=== PATIENT | female | born 1980 | race Caucasian/White ===

== ENCOUNTER → 2019-07-13 08:52 | Outpatient (CLI) | payer OTHER, SELFPAY ==
[2019-07-13 08:34] VITALS: BMI 48.9
[2019-07-13 12:27] LABS: Absolute Lymphocyte Count 1.62 X10^3/uL (0.83-4.51); Absolute Neutrophil Count 5.1 X10^3/uL (2.0-7.7); Basophil# 0.03 X10^3/uL; Basophil% 0.4 % (0-1); Eosinophil# 0.09 X10^3/uL; Eosinophils% 1.3 % (0-5); Hematocrit 38.5 % (37-47); Hemoglobin 12.2 g/dL (12.0-15.0); Lymphocyte # 1.62 X10^3/ul (4.0); Lymphocyte % 22.9 % (19-41); Mean Corp Hgb Conc 31.7 g/dL (32-36); Mean Corpuscular Hgb 28.2 pg (27.0-32.0); Mean Corpuscular Volume 89.1 fL (81-99); Mean Platelet Vol. 10.2 fl (6.2-12.0); Monocyte# 0.24 X10^3/uL; Monocyte% 3.4 % (0-10); NRBC Flagged by Analyzer 0 % (0-5); Neutrophil # 5.09 X10^3/uL (2.7-7.7); Neutrophil % 71.9 % (47-70); Platelet Count 295 K/mm3 (150-450); RBC Distribution Width CV 13.2 % (11.6-14.6); RBC Distribution Width SD 42.8 fl (35.1-43.9); Red Blood Count 4.32 M/mm3 (4.2-5.4); White Blood Count 7.1 K/mm3 (4.4-11.0)
[2019-07-13 13:20] LABS: ALB/GLOB Ratio 0.8 RATIO (0.9-2.4); AST(SGOT) 18 U/L (15-37); Alanine Aminotransfer ALT/SGPT 28 U/L (13-56); Albumin, Serum 3.3 g/dL (3.2-5.0); Alkaline Phosphatase 97 U/L (45-117); Anion Gap 9 (5-15); BUN 9 mg/dL (7-18); BUN/Creat Ratio 10.4 RATIO (10-20); Calcium,Total 8.7 mg/dL (8.5-10.1); Chloride 105 mmol/L (98-107); Creatinine, Serum 0.86 mg/dL (0.55-1.02); EST Glomerular Filtration Rate 77 mL/min (>60); Est Glom Filt Rate - Afr Amer 94 mL/min (>60); Globulin 4.2 g/dL (2.2-4.2); Glucose 170 mg/dL (74-106); Potassium 3.7 mmol/L (3.5-5.1); Protein, Total 7.5 g/dL (6.4-8.2); Sodium Level 138 mmol/L (136-145); T4 Free Direct 0.98 ng/dL (0.76-1.46); Thyroid Stim Hormone (TSH) 2.64 uIU/mL (0.358-3.74)
[2019-07-16 09:54] LABS: Hemoglobin A1c 5.3 % (3.8-5.6)
== END ==
PROVIDERS: PCP Internal Medicine; Referring Provider Internal Medicine; Visit Provider Internal Medicine
DX: R53.81 Other malaise (principal); R53.83 Other fatigue; R73.9 Hyperglycemia, unspecified; Z13.29 Encounter for screening for other suspected endocrine disorder
CPT/HCPCS: 36415; 80053; 83036; 84439; 84443; 85025

== ENCOUNTER → 2019-08-21 13:58 | Outpatient (CLI) | payer OTHER, SELFPAY ==
[2019-08-21 13:36] VITALS: BMI 48.9
[2019-08-21 17:28] LABS: Cholesterol 161 mg/dL (200); High Density Lipoprotein 33 mg/dL; Triglycerides 145 mg/dL; Very Low Density Lipoprotein 29 mg/dL (5-40)
== END ==
PROVIDERS: PCP Internal Medicine; Referring Provider Internal Medicine; Visit Provider Internal Medicine
DX: Z00.00 Encounter for general adult medical examination without abnormal findings (principal)
CPT/HCPCS: 36415; 80061

== ENCOUNTER → 2019-09-04 16:22 | Outpatient (CLI) | payer OTHER, SELFPAY ==
[2019-08-21 13:36] VITALS: BMI 48.9
--- NOTE | 2019-09-04 16:22 | BI_ITS ---
MAMMOGRAPHY - BILATERAL SCREENING REASON FOR EXAM: Female, 39 years old. Routine annual screening examination. PERTINENT HISTORY: Non-contributory. TECHNIQUE: Digital bilateral breast armos (3D mammographic acquisition) in the CC and MLO projections. 2-D mediolateral oblique (MLO) and craniocaudad (CC) views of both breasts were obtained. CAD: Full Field Digital Mammography with Computer Added Detection was performed. COMPARISON: None. Baseline examination. FINDINGS: Breast Composition: There are scattered areas of fibroglandular density. There are no dominant masses or suspicious calcifications. No other significant abnormalities are identified. BI/SCREEN MAMM (CAD) W/RAMOS BILAT IMPRESSION: Negative screening mammogram. Yearly followup mammogram recommended. (A) ASSESSMENT CATEGORY: BIRADS Category 1: Negative. A letter regarding these results will be sent to the patient by the facility within 30 days. Approximately 10% of breast cancers are not detected by mammography. A normal mammogram should not delay biopsy of a clinically suspicious abnormality. [id number] Electronically Signed: Guillermo White, at 8:27 EDT , Service support ,
== END ==
PROVIDERS: PCP Internal Medicine; Referring Provider Internal Medicine; Visit Provider Internal Medicine
DX: Z12.31 Encounter for screening mammogram for malignant neoplasm of breast (principal)
CPT/HCPCS: 77063; 77067

== ENCOUNTER → 2019-10-29 16:56 | Outpatient (CLI) | payer OTHER, SELFPAY ==
[2019-10-29 15:08] VITALS: BMI 48.9
[2019-11-01 17:53] LABS: HPV APTIMA, High Risk Negative (Negative)
== END ==
PROVIDERS: PCP Internal Medicine; Referring Provider Obstetrics & Gynecology; Visit Provider Obstetrics & Gynecology
DX: Z12.4 Encounter for screening for malignant neoplasm of cervix (principal)
CPT/HCPCS: 87624; 88175; G0145

== ENCOUNTER → 2020-01-02 12:49 | Outpatient (CLI) | payer OTHER, SELFPAY ==
[2019-11-12 14:11] VITALS: BMI 48.7
--- NOTE | 2020-01-02 12:52 | VDLE_ITS ---
Reason For Study: PAIN RIGHT LEFT GSV is normal. GSV is normal. CFV is compressible, spontaneous, phasic, CFV is compressible, spontaneous, phasic, competent and demonstrates normal competent, and demonstrates normal augmentation. augmentation. FV is compressible, spontaneous, phasic, FV is compressible, spontaneous, phasic, competent and demonstrates normal competent and demonstrates normal augmentation. augmentation. POP V is compressible, spontaneous, phasic, POP V is compressible, spontaneous, phasic, competent and demonstrates normal competent and demonstrates normal augmentation. augmentation. T/P Trunk is compressible. T/P Trunk is compressible. PTV is compressible. PTV is compressible. RT PerV is compressible. LT PerV is compressible. Procedure Exam performed in department. A preliminary report was called and/or faxed to DR Baldomero DOLAN. Interpretation Summary Deep veins of the lower extremities are bilaterally patent and compressible segmentally. There is no evidence of deep vein thrombosis on either side. Valvular competence appears intact within the proximal deep venous systems bilaterally. The great saphenous veins appear bilaterally patent and compressible segmentally. Ordering Physician: Anisha Dolan Referring Physician: Yasmany Gonzalez Performed By: Juana Encarnacion, NEMESIO, RVT
[2020-01-02 14:43] LABS: ALB/GLOB Ratio 0.7 RATIO (0.9-2.4); AST(SGOT) 13 U/L (15-37); Alanine Aminotransfer ALT/SGPT 18 U/L (13-56); Albumin, Serum 3.2 g/dL (3.2-5.0); Alkaline Phosphatase 82 U/L (45-117); Anion Gap 6 (5-15); BUN 8 mg/dL (7-18); BUN/Creat Ratio 10.7 RATIO (10-20); Calcium,Total 8.7 mg/dL (8.5-10.1); Chloride 107 mmol/L (98-107); Creatinine, Serum 0.75 mg/dL (0.55-1.02); EST Glomerular Filtration Rate 91 mL/min (>60); Est Glom Filt Rate - Afr Amer 110 mL/min (>60); Globulin 4.3 g/dL (2.2-4.2); Glucose 112 mg/dL (74-106); Magnesium 2.2 mg/dL (1.6-2.6); Phosphorus 2.7 mg/dL (2.5-4.9); Potassium 3.8 mmol/L (3.5-5.1); Protein, Total 7.5 g/dL (6.4-8.2); Sodium Level 138 mmol/L (136-145)
== END ==
PROVIDERS: PCP Internal Medicine; Referring Provider Obstetrics & Gynecology; Visit Provider Obstetrics & Gynecology
DX: M79.606 Pain in leg, unspecified (principal)
CPT/HCPCS: 36415; 80053; 83735; 84100; 93970

== ENCOUNTER → 2020-09-29 11:03 | Outpatient (CLI) | payer OTHER, SELFPAY ==
[2019-11-12 14:11] VITALS: BMI 48.7
--- NOTE | 2020-09-29 11:04 | BI_ITS ---
MAMMOGRAPHY - BILATERAL SCREENING REASON FOR EXAM: Female, 40 years old. Routine annual screening examination. PERTINENT HISTORY: Non-contributory. Occasional left breast tenderness. TECHNIQUE: Digital bilateral breast ramos (3D mammographic acquisition) in the CC and MLO projections. 2-D mediolateral oblique (MLO) and craniocaudad (CC) views of both breasts were obtained. CAD: Full Field Digital Mammography with Computer Added Detection was performed. COMPARISON: Comparison is made with prior examination dated 09/04/2019. FINDINGS: Breast Composition: There are scattered areas of fibroglandular density. There are no dominant masses or suspicious calcifications. No other significant abnormalities are identified. There has been no significant change since the prior study. BI/SCRN MAMM (CAD)W/RAMOS BILAT IMPRESSION: Stable bilateral screening mammogram. Yearly follow-up mammogram recommended. (A) ASSESSMENT CATEGORY: BIRADS Category 2: Benign. A letter regarding these results will be sent to the patient by the facility within 30 days. Approximately 10% of breast cancers are not detected by mammography. A normal mammogram should not delay biopsy of a clinically suspicious abnormality. [id number] Electronically Signed: Guillermo White MD at 12:40 EDT , Service support ,
== END ==
PROVIDERS: PCP Internal Medicine; Referring Provider Obstetrics & Gynecology; Visit Provider Obstetrics & Gynecology
DX: Z12.31 Encounter for screening mammogram for malignant neoplasm of breast (principal)
CPT/HCPCS: 77063; 77067

== ENCOUNTER 2020-10-20 15:50 | Emergency (ER) | payer OTHER, SELFPAY ==
[2020-10-20 15:52] VITALS: BP 166/94; PULSE 107; RESP 18; TEMP 36.7; O2SAT 97; BMI 42.8
--- NOTE | 2020-10-20 16:10 | RAD_ITS ---
STUDY: X-RAY CHEST REASON FOR EXAM: Female, 40 years old. Fever and cough TECHNIQUE: Single AP portable view of the chest. COMPARISON: None. FINDINGS: The lungs are clear and expanded. There is no demonstrated pleural abnormality. Normal size heart. Normal mediastinum and mariella. Normal visualized pulmonary arteries. Normal visualized aortic arch and descending thoracic aorta. There are diffuse degenerative changes of the visualized thoracic spine. Normal visualized ribs, clavicles, and shoulders. There is no demonstrated abnormality of the visualized soft tissue structures of the upper abdomen. RAD/Chest 1 View IMPRESSION: Normal x-ray examination of the chest. Electronically Signed: Zaire Mauricio MD at 16:21 EDT , Service support ,
--- NOTE | 2020-10-20 19:17 | EX.ED.DYSGE1 ---
HPI History of Present Illness Chief Complaint: Cough Informant: patient Narrative Narrative: Day three cough mild sore throat. No fevers or headache. No loss of taste or smell. No vomiting or diarrhea. Nonvaccinated. Covid infection in the past. [facility] Medical History Back pain Fatigue Knee pain Migraines Ovarian cyst Home Medications ibuprofen 400 mg tablet 400 mg PO Q8H 07/13/19 [History Last Taken Unknown] levonorgestrel-ethinyl estradiol 0.1 mg-20 mcg tablet 1 tab PO DAILY #28 tab 01/07/20 [Rx Last Taken Unknown] guaifenesin [Mucinex] 600 mg PO BID PRN #30 tab 10/20/20 [Rx Last Taken Unknown] Allergy/AdvReac Type Severity Reaction Status Date / Time Penicillins Allergy Unknown Verified 10/20/20 15:54 Family History Mother Diabetes Pancreatitis Grandmother Diabetes Heart disease Kidney disease Father Myocardial infarction Hypertension Heart disease Diabetes Grandfather Lung cancer Heart disease Surgical History History of cholecystectomy S/P eye surgery Social History Smoking Status: Never smoker alcohol intake: current alcohol intake frequency: holidays/special occasions only substance use type: does not use caffeine: Yes what type of physical activity do you participate in: walking and bicycling frequency: 1-2 times per week seatbelt use: always do you feel safe at home: Yes additional social history: [id number] at [employer] Patient works at [employer] Constitutional Constitutional ED: Denies chills, fever(s) or sweats Eyes Eyes: Denies change in vision ENT ENT ED: Reports sore throat; Denies dysphagia Cardiovascular Cardiovascular: Denies chest pain, leg edema, palpitations or racing heartbeat Respiratory/Chest Respiratory/Chest: Reports cough; Denies dyspnea or dyspnea on exertion Gastrointestinal Gastrointestinal: Denies abdominal pain, diarrhea, nausea or vomiting Genitourinary Genitourinary ED: Denies dysuria, hematuria or urinary frequency Musculoskeletal Musculoskeletal: Denies back pain, extremity pain or neck pain Integumentary Denies rash or wounds Neurologic Neurologic: Denies headache(s), paresthesias or weakness EXAM Physical Exam Const Vital Signs: 10/20/20 15:52 10/20/20 18:30 10/20/20 19:24 Temperature 98.0 F Temperature Source Temporal Pulse Rate 107 H Respiratory Rate 18 Respiratory Effort Normal Non-Labored Respiratory Depth Normal Respiratory Pattern Normal Blood Pressure 166/94 H Blood Pressure Mean 118 Pulse Ox 97 95 Oxygen Delivery Method Room Air Positive well nourished and well developed General Appearance ED: well developed and NAD HEENT Reports moist mucous membranes HEENT Narrative: No posterior pharyngeal erythema 1+ symmetric tonsils bilaterally. No exudates. No trismus. Uvula midline. normocephalic and atraumatic Eyes PERRL, EOMs intact bilaterally and conjunctivae normal General Eye ED: Yes normal appearance of both eyes Neck no lymphadenopathy and supple General: Negative for tenderness Chest Wall Chest: Negative for tenderness Resp normal respiratory effort and normal air movement Effort and Inspection: symmetric chest movement; Negative for respiratory distress Cardio regular rate, regular rhythm and no murmurs Peripheral Pulses: pulses 2+ throughout GI normal to inspection, nondistended, normoactive bowel sounds and non-tender Palpation: Negative for guarding or rebound tenderness present Back/Spine no CVA tenderness and no thoracic nor lumbar tenderness Extremity normal to inspection General Extremety ED: Negative for edema or tenderness General Extremity: Negative for edema Neuro oriented x3 and no sensory deficits noted Sensorium / Orientation: awake and alert Skin no rashes or lesions noted and no wounds MDM MDM MDM Narrative Medical decision making narrative: Patient work-up started in triage and seen out there in triage room. Chest x-ray negative. Covid testing negative. Discussed potential false negatives with the patient. She will monitor her symptoms. She is written for Mucinex for symptom control. Signs of discussed return. All questions were answered. Patient is being discharged under pandemic conditions under declared global, national and state disaster activation, with limited medical resources. Patient and community understands this. Results discussed in layman's terms to the patient satisfaction. All questions answered in layman's terms. Patient understands importance of follow-up care as directed. Patient has been instructed to return to the ED immediately if new symptoms, problems, or questions occur. We mutually agree with the plan of disposition. The patient understand that they may call or return with any questions or concerns at any time. Lab Data Attestation: I reviewed the patient's lab results. Radiography Chest X-Ray - ED: 1 View and Read by Radiologist Diagnostic Testing: Radiology Impression Chest X-Ray 10/20/20 16:10 IMPRESSION: Normal x-ray examination of the chest. Electronically Signed: Zaire Mauricio MD at 16:21 EDT , Service support , Discharge Plan Triage Chief Complaint: Cough Other Complaint: Chest Pain ED Provider: Jose Ch Dx/Rx/DC Orders Clinical Impression: URI, acute Instructions: Coronavirus Disease 2019 (COVID-19): Overview, ED URI, Viral, No Abx (Adult) Prescriptions: New guaifenesin [Mucinex] 600 mg tablet extended release 12hr 600 mg PO BID PRN (Reason: congestion) Qty: 30 RF: 0 No Action ibuprofen 400 mg tablet 400 mg PO Q8H RF: 0 levonorgestrel-ethinyl estrad 0.1-20 mg-mcg tablet 1 tab PO DAILY Qty: 28 RF: 12 Primary Care Provider: Yasmany Gonzalez Referrals: Yasmany Gonzalez MD [Primary Care Provider] - 1 Week if not improving Disposition Disposition: Home, Self Care Discharge Date/Time: 10/20/20 19:25
[2020-10-20 19:24] VITALS: O2SAT 95
== END 2020-10-20 19:25 | disposition home or self-care (01) ==
PROVIDERS: Emergency Provider Emergency Medicine; PCP Internal Medicine
DX: J06.9 Acute upper respiratory infection, unspecified (principal)
CPT/HCPCS: 71045; 87426; 99282

== ENCOUNTER → 2021-06-16 | Outpatient (CLI) | payer OTHER, SELFPAY ==
[2021-06-16 14:59] LABS: Hematocrit 37.6 % (37-47); Hemoglobin 12.1 g/dL (12.0-15.0); Mean Corp Hgb Conc 32.2 g/dL (32-36); Mean Corpuscular Hgb 27.7 pg (27.0-32.0); Mean Platelet Vol. 9.7 fl (6.2-12.0); Platelet Count 314 K/mm3 (150-450); RBC Distribution Width CV 12.9 % (11.6-14.6); RBC Distribution Width SD 40.1 fl (35.1-43.9); Red Blood Count 4.37 M/mm3 (4.2-5.4); White Blood Count 7.3 K/mm3 (4.4-11.0)
[2021-06-16 15:27] LABS: T4 Free Direct 0.98 ng/dL (0.76-1.46); Thyroid Stim Hormone (TSH) 1.94 uIU/mL (0.358-3.74)
== END | disposition home or self-care (01) ==
PROVIDERS: PCP Internal Medicine; Visit Provider Student in an Organized Health Care Education/Training Program
DX: N93.9 Abnormal uterine and vaginal bleeding, unspecified (principal)
CPT/HCPCS: 36415; 84439; 84443; 85027

== ENCOUNTER → 2021-11-23 | Outpatient (CLI) | payer OTHER, SELFPAY ==
--- NOTE | 2021-11-23 12:42 | BI_ITS ---
MAMMOGRAPHY - BILATERAL SCREENING REASON FOR EXAM: Female, 41 years old. Routine annual screening examination. PERTINENT HISTORY: Non-contributory. TECHNIQUE: Digital bilateral breast ramos (3D mammographic acquisition) in the CC and MLO projections. 2-D mediolateral oblique (MLO) and craniocaudad (CC) views of both breasts were obtained. CAD: Full Field Digital Mammography with Computer Added Detection was performed. COMPARISON: Comparison is made with prior examination dated 09/29/2020 and 09/04/2019. FINDINGS: Breast Composition: There are scattered areas of fibroglandular density. There are no dominant masses or suspicious calcifications. The left breast is larger than right. This is unchanged. No other significant abnormalities are identified. There has been no significant change since the prior study. BI/SCRN MAMM (CAD)W/RAMOS BILAT IMPRESSION: Stable bilateral screening mammogram. Yearly follow-up mammogram recommended. (A) ASSESSMENT CATEGORY: BIRADS Category 2: Benign. A letter regarding these results will be sent to the patient by the facility within 30 days. Approximately 10% of breast cancers are not detected by mammography. A normal mammogram should not delay biopsy of a clinically suspicious abnormality. [id number] Electronically Signed: Guillermo White MD at 13:38 EDT ,
== END | disposition home or self-care (01) ==
LOC: OPBI 12:41
PROVIDERS: PCP Internal Medicine; Visit Provider Student in an Organized Health Care Education/Training Program
DX: Z12.31 Encounter for screening mammogram for malignant neoplasm of breast (principal)
CPT/HCPCS: 77063; 77067

== ENCOUNTER 2022-02-21 13:10 | Emergency (ER) | payer OTHER, SELFPAY ==
[2022-02-21 13:11] VITALS: BP 183/100; PULSE 111; RESP 18; TEMP 36.6; O2SAT 98; BMI 45.6
--- NOTE | 2022-02-21 13:26 | RAD_ITS ---
EXAM: XR RIGHT FOOT COMPLETE, 3 OR MORE VIEWS CLINICAL INDICATION: Right foot injury and pain. TECHNIQUE: Frontal, lateral and oblique views of the right foot. This report was created using [employer] report generation technology. COMPARISON: None. FINDINGS: BONES/JOINTS: Unremarkable. No acute fracture. No subluxation. Normal alignment. Preservation of the joint space. No sclerotic or destructive changes observed. SOFT TISSUES: Small calcific tendinosis behind the posterior calcaneal surface. No soft tissue swelling or gas. RAD/Foot min 3 Views IMPRESSION: No acute findings in the right foot. Electronically Signed: Jose Alfredo Silva MD at 13:47 EST ,
--- NOTE | 2022-02-21 13:27 | ED.VIS.LOWEX ---
HPI History of Present Illness Chief Complaint: Lower Extremity Injury Detail of Chief Complaint: Pain at insertion site of Achilles tendon Informant: patient Occured/Mechanism Comment: Patient states pain several days ago when she was running high heels and slipped. The pain was improving. Last evening she felt a ripping sensation and had acute pain that awoke her from sleep. There is swelling at the insertion site of the right Achilles tendon compared to the uninjured foot/ankle. She denies prior injury to her Achilles tendon. She denies pain anteriorly. She denies paresthesia anesthesia or motor weakness. Onset/Context/Timing Onset: Days Current Severity: Mild Maximum Severity: Moderate Worsened by: Walking, pushing down, palpation Relieved by: Improves with Associated Symptoms Associated Symptoms: Negative for Parasthesia, Weakness or Loss of Funtion Narrative Narrative: Patient states pain several days ago when she was running high heels and slipped. The pain was improving. Last evening she felt a ripping sensation and had acute pain that awoke her from sleep. There is swelling at the insertion site of the right Achilles tendon compared to the uninjured foot/ankle. She denies prior injury to her Achilles tendon. She denies pain anteriorly. She denies paresthesia anesthesia or motor weakness. Patient denies any direct trauma. Patient denies any symptoms in her toes or knee. Tetanus Immunization: 5-10 years Prior similar symptoms: No Recent Illness/Hospitalization: No [facility] Medical History (Updated 02/21/22 @ 13:[address] Daniel Zaragoza MD) Back pain Fatigue Knee pain Migraines Ovarian cyst Home Medications levonorgestrel 0.15 mg-ethinyl estradiol 0.03 mg tablet (Altavera (28)) 1 tab PO DAILY #84 tabs 03/30/21 [Rx Last Taken Unknown] naproxen 500 mg tablet 500 mg PO BID #14 tabs 02/21/22 [Rx Last Taken Unknown] Allergy/AdvReac Type Severity Reaction Status Date / Time Penicillins Allergy Unknown Verified 02/21/22 13:13 Family History Mother Diabetes Pancreatitis Grandmother Diabetes Heart disease Kidney disease Father Myocardial infarction Hypertension Heart disease Diabetes Grandfather Lung cancer Heart disease Surgical History History of cholecystectomy S/P eye surgery Social History Smoking Status: Never smoker alcohol intake: current alcohol intake frequency: holidays/special occasions only substance use type: does not use caffeine: Yes what type of physical activity do you participate in: walking and bicycling frequency: 1-2 times per week seatbelt use: always do you feel safe at home: Yes additional social history: [id number] at [employer] Patient works at [employer] ED Musculoskeletal Musculoskeletal: Reports other Details: Per HPI narrative ; Denies arthralgias, back pain, myalgias or neck pain Integumentary Denies Abrasions or rash Neurologic Neurologic: Denies headache(s), paresthesias or weakness Hematologic/Lymphatic Hematologic/Lymphatic: Denies easy bleeding or easy bruising EXAM Physical Exam Const Vital Signs: 02/21/22 13:11 Temperature 97.9 F Temperature Source Temporal Pulse Rate 111 H Respiratory Rate 18 Blood Pressure 183/100 H Blood Pressure Mean 127 Pulse Ox 98 Oxygen Delivery Method Room Air Positive well nourished and well developed General Appearance ED: well developed and NAD HEENT normocephalic and atraumatic Eyes Eyes Narrative: Nipples equal round reactive. Extraocular tach. Resp normal respiratory effort Cardio regular rate and regular rhythm Extremity full ROM; Negative for normal to inspection Extremity Narrative: There is swelling and pain all patient over the Achilles tendon insertion site right side. There is no palpable defect. Vicente's test indicates the Achilles tendon is intact. DP and PT pulse are palpable. There is no pain the patient over the lateral medial malleolus. There is no pain ovation over the calcaneus per se. General Extremety ED: Yes weight-bearing difficulty; Negative for cyanosis or edema General Extremity: weight-bearing difficulty; Negative for cyanosis or edema Neuro oriented x3, CN's II-XII intact bilaterally, moves all extremities and no sensory deficits noted Sensorium / Orientation: alert Skin no wounds Skin Narrative: Soft tissue swelling posterior right foot in the proximity of the Achilles tendon insertion site Lesions: no lesions Rashes: no rashes MDM MDM MDM Narrative Medical decision making narrative: X-ray was obtained to see if there is any obvious defect and more importantly if there is evidence of a avulsion type injury. Patient was treated with NSAIDs as was no contraindication. Outpatient [facility] note was reviewed. This was for annual exam and unremarkable. Other outside notes are at urgent care center for URI symptoms. Radiography X-Ray: - (Three-view x-ray of the foot was independently reviewed interpreted by me as positive for calcification of the insertion site of the Achilles tendon. This is where patient has swelling and tenderness. Treatment is NSAIDs and she has no contraindication.) Diagnostic Testing: Clinical Impression(s) from Imaging Studies Foot X-Ray 02/21/22 13:26 IMPRESSION: No acute findings in the right foot. 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 Mccord for repeat blood pressure in 1 to 2 weeks. Disposition Disposition: Home, Self Care
[2022-02-21] MEDS: Ibuprofen 600 MG Tablet PO (13:48)
[2022-02-21 14:26] VITALS: BP 145/86
== END 2022-02-21 14:26 | disposition home or self-care (01) ==
PROVIDERS: Emergency Provider Emergency Medicine; PCP Internal Medicine; Visit Provider Emergency Medicine
DX: M76.62 Achilles tendinitis, left leg (principal); R00.0 Tachycardia, unspecified; R03.0 Elevated blood-pressure reading, without diagnosis of hypertension; Z79.1 Long term (current) use of non-steroidal anti-inflammatories (NSAID); Z79.899 Other long term (current) drug therapy
CPT/HCPCS: 73630; 99283

== ENCOUNTER → 2022-03-01 | Outpatient (CLI) | payer OTHER, SELFPAY ==
[2022-03-01 12:15] LABS: Absolute Lymphocyte Count 1.75 X10^3/uL (0.83-4.51); Absolute Neutrophil Count 4.9 X10^3/uL (2.0-7.7); Basophil# 0.04 X10^3/uL; Basophil% 0.6 % (0-1); Eosinophil# 0.03 X10^3/uL; Eosinophils% 0.4 % (0-5); Hematocrit 39.6 % (37-47); Hemoglobin 12.4 g/dL (12.0-15.0); Lymphocyte # 1.75 X10^3/ul (0.83-4.51); Lymphocyte % 24.7 % (19-41); Mean Corp Hgb Conc 31.3 g/dL (32-36); Mean Corpuscular Hgb 27.3 pg (27.0-32.0); Mean Corpuscular Volume 87.2 fL (81-99); Mean Platelet Vol. 9.9 fl (6.2-12.0); Monocyte# 0.36 X10^3/uL; Monocyte% 5.1 % (0-10); NRBC Flagged by Analyzer 0.4 % (0-5); Neutrophil # 4.87 X10^3/uL (2.7-7.7); Neutrophil % 68.8 % (47-70); Platelet Count 333 K/mm3 (150-450); RBC Distribution Width CV 13.2 % (11.6-14.6); RBC Distribution Width SD 41.5 fl (35.1-43.9); Red Blood Count 4.54 M/mm3 (4.2-5.4); White Blood Count 7.1 K/mm3 (4.4-11.0)
[2022-03-01 12:36] LABS: ALB/GLOB Ratio 0.8 RATIO (0.9-2.4); AST(SGOT) 19 U/L (15-37); Alanine Aminotransfer ALT/SGPT 23 U/L (13-56); Albumin, Serum 3.3 g/dL (3.2-5.0); Alkaline Phosphatase 75 U/L (45-117); Anion Gap 10 (5-15); BUN 11 mg/dL (7-18); BUN/Creat Ratio 13.4 RATIO (10-20); Chloride 109 mmol/L (98-107); Cholesterol 162 mg/dL (200); Creatinine, Serum 0.82 mg/dL (0.55-1.02); EST Glomerular Filtration Rate 81 mL/min (>60); Est Glom Filt Rate - Afr Amer 98 mL/min (>60); Globulin 4.1 g/dL (2.2-4.2); Glucose 115 mg/dL (74-106); High Density Lipoprotein 39 mg/dL; Potassium 4.4 mmol/L (3.5-5.1); Protein, Total 7.4 g/dL (6.4-8.2); Sodium Level 140 mmol/L (136-145); Triglycerides 199 mg/dL; Very Low Density Lipoprotein 40 mg/dL (5-40)
[2022-03-01 18:19] LABS: Hemoglobin A1c 5.4 % (3.8-5.6)
== END | disposition home or self-care (01) ==
LOC: BIMLAB 09:33
PROVIDERS: PCP Internal Medicine; Referring Provider Internal Medicine; Visit Provider Internal Medicine
DX: I10 Essential (primary) hypertension (principal); E66.01 Morbid (severe) obesity due to excess calories; R73.9 Hyperglycemia, unspecified
CPT/HCPCS: 36415; 80053; 80061; 83036; 85025

== ENCOUNTER 2022-03-10 12:24 | Emergency (ER) | payer OTHER, SELFPAY ==
[2022-03-10 12:25] VITALS: BP 139/90; PULSE 105; RESP 16; TEMP 36.2; O2SAT 100; BMI 45.6
--- NOTE | 2022-03-10 13:09 | EDS_ITS ---
HPI HPI - Female History of Present Illness Chief Complaint: Complaint Informant: patient Narrative Narrative: Patient was referred in here after seeing her private physician earlier today. She had a negative flu and COVID screen today. She was very lightheaded, vomiting, could not produce urine. Therefore she was sent here. She states she started to get sick about 5 to 6 days ago. She had some hot cold chills fevers nausea vomiting and some right flank soreness. She also noticed that the urine was very dark orange and had a very strong odor. She had some discomfort with urination. This was not sudden onset right flank pain. Its not sharp or stabbing. She has never had a kidney stone. She states she was feeling a little bit better yesterday but then today it seems to be coming back. She vomited again today. She is still having the urinary symptoms in the right flank soreness off and on. Past medical history of high blood pressure Medications reviewed Allergy to penicillin?rash No recent surgeries but she has had prior cholecystectomy. Lives at home with [facility] Medical History Back pain Fatigue Hyperglycemia Hypertension Knee pain Migraines Morbid obesity Ovarian cyst Home Medications levonorgestrel 0.15 mg-ethinyl estradiol 0.03 mg tablet (Altavera (28)) 1 tab PO DAILY #84 tabs 03/30/21 [Rx Last Taken Unknown] meloxicam 15 mg tablet 15 mg PO DAILY #30 tabs 02/24/22 [Rx Last Taken Unknown] amlodipine 5 mg tablet 5 mg PO DAILY #30 tabs 03/01/22 [Rx Last Taken Unknown] ciprofloxacin HCl 500 mg tablet 500 mg PO BID #14 tabs 03/10/22 [Rx Last Taken Unknown] ondansetron 4 mg disintegrating tablet 4 mg PO Q8H PRN nausea and vomiting #20 tabs 03/10/22 [Rx Last Taken Unknown] promethazine 25 mg tablet 25 mg PO Q6H PRN PRN Nausea #10 TABLETS 03/10/22 [Rx Last Taken Unknown] Allergy/AdvReac Type Severity Reaction Status Date / Time Penicillins Allergy Unknown Verified 03/10/22 11:13 Family History Mother Diabetes Pancreatitis Grandmother Diabetes Heart disease Kidney disease Father Myocardial infarction Hypertension Heart disease Diabetes Grandfather Lung cancer Heart disease Surgical History History of cholecystectomy S/P eye surgery Social History Smoking Status: Never smoker alcohol intake: current alcohol intake frequency: holidays/special occasions only substance use type: does not use caffeine: Yes what type of physical activity do you participate in: walking and bicycling frequency: 1-2 times per week seatbelt use: always do you feel safe at home: Yes additional social history: [id number] at [employer] Patient works at [employer] ED Constitutional Constitutional ED: Reports chills, fever(s), subjective and sweats Eyes Eyes: Denies change in vision ENT ENT ED: Denies rhinorrhea or sore throat Cardiovascular Cardiovascular: Denies chest pain or palpitations Respiratory/Chest Respiratory/Chest: Denies cough or dyspnea Gastrointestinal Gastrointestinal: Reports nausea and vomiting; Denies abdominal pain, constipation, diarrhea or melena Genitourinary Genitourinary ED: Reports dysuria and urinary frequency Musculoskeletal Musculoskeletal: Reports other Details: He does have some right flank area pain. ; Denies myalgias or neck pain Integumentary Denies rash Neurologic Neurologic: Denies weakness Endocrine Endocrinology: Denies polydipsia or polyuria Hematologic/Lymphatic Hematologic/Lymphatic: Denies lymphadenopathy Allergic/Immunologic Allergic/Immunologic ED: Denies urticaria EXAM Physical Exam Narrative Exam Narrative: Patient awake alert no acute distress. She does look like she does not feel well. Pleasant clear informant. Mucous membranes are dry. No JVD. Lungs are clear bilaterally. No pain with a deep breath. Heart is regular. Rate of about 90-100 showing mild borderline tachycardia. No murmur gallop or rub. Peripheral pulses are equal. Abdomen is obese but overall not tender. Bowel sounds do sound normal. No significant suprapubic tenderness. she does have right CVA tenderness. Extremities show no edema or rash. Neurologically she is awake alert and appropriate. Const Vital Signs: 03/10/22 12:25 Temperature 97.2 F L Temperature Source Temporal Pulse Rate 105 H Respiratory Rate 16 Blood Pressure 139/90 H Blood Pressure Mean 106 Pulse Ox 100 Oxygen Delivery Method Room Air MDM MDM MDM Narrative Medical decision making narrative: Patient CBC shows minimal anemia at 11.2. However, platelets and white count are normal. Electrolytes show minimal drop of potassium. This should self correct with diet. We considered using oral potassium but the main side effect is nausea which I do not want a worsen. I do not think her levels and lack of symptoms justify IV potassium and this can be very irritating to the vessels and cause a vasculitis. was negative. Urine was consistent with a UTI. It was cloudy, positive nitrites, positive leukocyte esterase, red cells and white cells. She also had 3+ bacteria and this was a clean-catch with 0 squamous epithelial cells. With her symptoms, I do think this justifies UTI and pyelonephritis on the right. Patient's recheck. She feels much better. She has no nausea at all. Her physician has already called in a prescription for ciprofloxacin and Zofran. I will add Phenergan as she will have a second option for nausea if that develops. I will give her an IV dose of levofloxacin here. We currently have a shortage of Cipro IV. We considered performing CT of the abdomen. But she has no history of kidney stones. She does not have sharp or radiating pain. She has a dull ache in her right kidney. Her symptoms were not sudden onset. Her symptoms are much more consistent with UTI pyelonephritis than kidney stone. We did discuss if she gets more severe pain, nausea vomiting returns, high fevers, confusion, and inability to take meds or any other concerns she should return. Lab Data Attestation: I reviewed the patient's lab results. Labs: Laboratory Results - last 24 hr 03/10/22 03/10/22 03/10/22 13:52 13:52 13:52 WBC 5.1 RBC 4.17 L Hgb 11.2 L Hct 35.7 L MCV 85.6 MCH 26.9 L MCHC 31.4 L RDW Std Deviation 42.4 RDW Coeff of Dylan 13.4 Plt Count 217 MPV 10.4 Immature Gran % (Auto) 0.400 Neut % (Auto) 74.7 H Lymph % (Auto) 17.0 L [place] % (Auto) 7.3 Eos % (Auto) 0.2 Baso % (Auto) 0.4 Absolute Neuts (auto) 3.8 Absolute Lymphs (auto) 0.86 Nucleated RBC % 0 Sodium 136 Potassium 3.2 L Chloride 104 Carbon Dioxide 23.0 Anion Gap 9 BUN 11 Creatinine 0.97 Estim Creat Clear Calc 78.96 Est GFR (MDRD) Af Amer 80 Est GFR (MDRD) Non-Af 66 BUN/Creatinine Ratio 11.3 Glucose 153 H Calcium 8.6 Serum , Qual NEGATIVE Urine Color Urine Clarity Urine pH Ur Specific [place] Urine Protein Urine Glucose (UA) Urine Ketones Urine Occult Blood Urine Nitrite Urine Bilirubin Urine Urobilinogen Ur Leukocyte Esterase Urine RBC Urine WBC Ur Squamous Epith Cells Urine Bacteria Urine Mucus 03/10/22 14:46 WBC RBC Hgb Hct MCV MCH MCHC RDW Std Deviation RDW Coeff of Dylan Plt Count MPV Immature Gran % (Auto) Neut % (Auto) Lymph % (Auto) [place] % (Auto) Eos % (Auto) Baso % (Auto) Absolute Neuts (auto) Absolute Lymphs (auto) Nucleated RBC % Sodium Potassium Chloride Carbon Dioxide Anion Gap BUN Creatinine Estim Creat Clear Calc Est GFR (MDRD) Af Amer Est GFR (MDRD) Non-Af BUN/Creatinine Ratio Glucose Calcium Serum , Qual Urine Color Red Urine Clarity Sl. Cloudy Urine pH 6.5 Ur Specific [place] 1.005 Urine Protein 100 H Urine Glucose (UA) Normal Urine Ketones Negative Urine Occult Blood 250 H Urine Nitrite Positive H Urine Bilirubin Negative Urine Urobilinogen Normal Ur Leukocyte Esterase 100 H Urine RBC 25-50 SEEN Urine WBC 5-10 SEEN Ur Squamous Epith Cells 0 SEEN Urine Bacteria 3+ Urine Mucus 0 SEEN Discharge Plan Triage Chief Complaint: Complaint Other Complaint: Nausea/Vomiting Weakness ED Provider: Kristian Mtz Dx/Rx/DC Orders Clinical Impression: Pyelonephritis of right kidney, Nausea & vomiting, Hypokalemia Instructions: ED Pyelonephritis, Female (Adult) Prescriptions: New promethazine [promethazine] 25 mg tablet 25 mg PO Q6H PRN PRN (Reason: Nausea) Qty: 10 0RF No Action meloxicam 15 mg tablet 15 mg PO DAILY Qty: 30 0RF amlodipine 5 mg tablet 5 mg PO DAILY Qty: 30 1RF ciprofloxacin HCl 500 mg tablet 500 mg PO BID Qty: 14 0RF ondansetron 4 mg tablet,disintegrating 4 mg PO Q8H PRN (Reason: nausea and vomiting) Qty: 20 0RF levonorgestrel-ethinyl estrad [Altavera (28)] 0.15-0.03 mg tablet 1 tab PO DAILY Qty: 84 2RF Primary Care Provider: Yasmany Gonzalez Referrals: Yasmany Gonzalez MD [Primary Care Provider] - 3-5 Days Disposition Disposition: Home, Self Care
[2022-03-10] MEDS: Ondansetron 4 MG/2 ML Vial IV (13:53)
[2022-03-10] MEDS: 0.9% Normal Saline 1,000 ML 1000 ML IV (13:53)
[2022-03-10 14:06] LABS: Absolute Lymphocyte Count 0.86 X10^3/uL (0.83-4.51); Absolute Neutrophil Count 3.8 X10^3/uL (2.0-7.7); Basophil# 0.02 X10^3/uL; Basophil% 0.4 % (0-1); Eosinophil# 0.01 X10^3/uL; Eosinophils% 0.2 % (0-5); Hematocrit 35.7 % (37-47); Hemoglobin 11.2 g/dL (12.0-15.0); Lymphocyte # 0.86 X10^3/ul (0.83-4.51); Mean Corp Hgb Conc 31.4 g/dL (32-36); Mean Corpuscular Hgb 26.9 pg (27.0-32.0); Mean Corpuscular Volume 85.6 fL (81-99); Mean Platelet Vol. 10.4 fl (6.2-12.0); Monocyte# 0.37 X10^3/uL; Monocyte% 7.3 % (0-10); NRBC Flagged by Analyzer 0 % (0-5); Neutrophil # 3.77 X10^3/uL (2.7-7.7); Neutrophil % 74.7 % (47-70); Platelet Count 217 K/mm3 (150-450); RBC Distribution Width CV 13.4 % (11.6-14.6); RBC Distribution Width SD 42.4 fl (35.1-43.9); Red Blood Count 4.17 M/mm3 (4.2-5.4); White Blood Count 5.1 K/mm3 (4.4-11.0)
[2022-03-10 14:31] LABS: Anion Gap 9 (5-15); BUN 11 mg/dL (7-18); BUN/Creat Ratio 11.3 RATIO (10-20); Calcium,Total 8.6 mg/dL (8.5-10.1); Chloride 104 mmol/L (98-107); Creatinine, Serum 0.97 mg/dL (0.55-1.02); EST Glomerular Filtration Rate 66 mL/min (>60); Est Glom Filt Rate - Afr Amer 80 mL/min (>60); Estimated Creatinine Clearance 78.96 ml/min; Glucose 153 mg/dL (74-106); Potassium 3.2 mmol/L (3.5-5.1); Sodium Level 136 mmol/L (136-145)
[2022-03-10 14:34] LABS: Internal QC Validated? YES +Cl - CLEAR BKGD; Pregnancy, Serum, hCG Quali. NEGATIVE Negative
[2022-03-10 14:56] LABS: Mucous, Urine 0 SEEN /hpf (<or=2+); Squamous Epithelial Cells - UA 0 SEEN /hpf (5-10)
[2022-03-10 14:58] LABS: Color, Urine Red (Yellow); Glucose, Dipstick Normal (Normal); Ketone-Dipstick Negative (Negative); Leukocyte Esterase-Dipstick 100 /ul (Negative); Nitrite-Dipstick Positive (Negative); Occult Blood-Urine 250 /ul (Negative); Protein-Dipstick 100 mg/dl (Negative); Specific Gravity, Urine 1.005 (1.002-1.030); Urine Bilirubin Dipstick Negative (Negative); Urine Clarity Sl. Cloudy (Clear); Urine Urobilinogen Normal (Normal); Urine pH 6.5 (5.0 - 8.0)
[2022-03-10 15:09] LABS: Red Blood Cells-Urine 25-50 SEEN /hpf (0-5); White Blood Cells 5-10 SEEN /hpf (0-5)
[2022-03-10 15:10] LABS: Bacteria 3+ /hpf (None Seen)
[2022-03-10] MEDS: 0.9% Normal Saline 1,000 ML 999 ML IV (15:58)
[2022-03-10] MEDS: levoFLOXacin IV 750 MG/150 ML BAG 100 MG IV (16:45)
== END 2022-03-10 18:37 | disposition home or self-care (01) ==
PROVIDERS: Emergency Provider Emergency Medicine; PCP Internal Medicine; Visit Provider Emergency Medicine
DX: N12 Tubulo-interstitial nephritis, not specified as acute or chronic (principal); R10.9 Unspecified abdominal pain; I10 Essential (primary) hypertension; D64.9 Anemia, unspecified; R53.1 Weakness; R11.2 Nausea with vomiting, unspecified; E87.6 Hypokalemia; Z90.49 Acquired absence of other specified parts of digestive tract
CPT/HCPCS: 80048; 81001; 84703; 85025; 87077; 87086; 87088; 87186; 96365; 96366; 96375; 99282; J7030; A4216; J2405

== ENCOUNTER → 2022-03-18 | Outpatient (CLI) | payer OTHER, SELFPAY ==
[2022-03-18 13:54] LABS: Mucous, Urine 0 SEEN /hpf (<or=2+); Red Blood Cells-Urine 0 SEEN /hpf (0-5)
[2022-03-18 15:42] LABS: Color, Urine Yellow (Yellow); Glucose, Dipstick Normal (Normal); Ketone-Dipstick Negative (Negative); Leukocyte Esterase-Dipstick 100 /ul (Negative); Nitrite-Dipstick Negative (Negative); Occult Blood-Urine Negative /ul (Negative); Protein-Dipstick Negative (Negative); Urine Bilirubin Dipstick Negative (Negative); Urine Clarity Clear (Clear); Urine Urobilinogen Normal (Normal)
[2022-03-18 15:55] LABS: Bacteria RARE /hpf (None Seen); White Blood Cells 0-5 SEEN /hpf (0-5)
[2022-03-18 15:56] LABS: Squamous Epithelial Cells - UA 0-5 SEEN /hpf (5-10)
== END | disposition home or self-care (01) ==
LOC: LABSPEC 13:43
PROVIDERS: PCP Internal Medicine; Referring Provider Nurse Practitioner Family; Visit Provider Nurse Practitioner Family
DX: R10.9 Unspecified abdominal pain (principal)
CPT/HCPCS: 81001; 87086; 87088

== ENCOUNTER → 2022-05-04 | Outpatient (CLI) | payer OTHER, SELFPAY ==
[2022-05-04 14:39] LABS: Bacteria 0 SEEN /hpf (None Seen); Mucous, Urine 0 SEEN /hpf (<or=2+); Red Blood Cells-Urine 0 SEEN /hpf (0-5); Squamous Epithelial Cells - UA 0 SEEN /hpf (5-10)
[2022-05-04 15:47] LABS: Color, Urine Yellow (Yellow); Glucose, Dipstick Normal (Normal); Ketone-Dipstick Negative (Negative); Leukocyte Esterase-Dipstick 25 /ul (Negative); Nitrite-Dipstick Negative (Negative); Occult Blood-Urine Negative /ul (Negative); Protein-Dipstick Negative (Negative); Specific Gravity, Urine 1.005 (1.002-1.030); Urine Bilirubin Dipstick Negative (Negative); Urine Clarity Sl. Cloudy (Clear); Urine Urobilinogen Normal (Normal)
[2022-05-04 16:18] LABS: White Blood Cells 0-5 SEEN /hpf (0-5)
[2022-05-04 17:02] LABS: Anion Gap 7 (5-15); BUN 13 mg/dL (7-18); BUN/Creat Ratio 16.5 RATIO (10-20); Calcium,Total 9.4 mg/dL (8.5-10.1); Chloride 106 mmol/L (98-107); Creatinine, Serum 0.79 mg/dL (0.55-1.02); EST Glomerular Filtration Rate 85 mL/min (>60); Est Glom Filt Rate - Afr Amer 102 mL/min (>60); Glucose 133 mg/dL (74-106); Potassium 4.5 mmol/L (3.5-5.1); Sodium Level 137 mmol/L (136-145)
== END | disposition home or self-care (01) ==
LOC: BIMLAB 14:38
PROVIDERS: PCP Internal Medicine; Referring Provider Nurse Practitioner Family; Visit Provider Nurse Practitioner Family
DX: R82.90 Unspecified abnormal findings in urine (principal); E87.6 Hypokalemia
CPT/HCPCS: 36415; 80048; 81001; 87086; 87088

== ENCOUNTER 2022-06-28 10:00 | Outpatient (RCR) | payer OTHER, SELFPAY ==
--- NOTE | 2022-05-31 16:27 | HP.PTEVAL ---
Patient's Visit Information AVA HEMPHILL is a 42 year old F referred to Physical Therapy by Dr. Robert Calvo DPM with a diagnosis of Right Achilles Partial Tear. Date of Evaluation: 05/31/22 Physical Therapist: Griselda Teague DPT - Visit Plan Frequency: 2-3x /Week Duration: 4 Weeks Plan: Proprioception, LE strength/stabilization, gait training, flexibility. HEP Given IE: Ankle ROM, Gastroc Stretch with towel, weight shift SLS - Subjective Right partial achilles tear- Dad was in ICU in Feb- was in dress shoes flying through hospital went to get up and it was stiff so she babied it and it finally release and she was in/out of the hospital- 2 days later she had squatted down and it felt like velcro and leaned on the counter and hobbled to the couch. The next day went to the ER. They did an x-rays said tendonitis and sent her home- follow up with ortho. She followed up with Tristan and then he ordered MRI and it showed a partial tear. Then referred to Umesh- her dad is still up/down- he fell and landed on her and re-injured it. Is unsure if she complete tore it about 4 weeks ago. She went back in the boot and told her to come to PT. The boot helped. She has been out of the boot for a week- she has been wearing Hey Dudes and they feel the best- she does not wear orthotics in the shoes. She does have them and plans to go buy new shoes. Pain is located along the back of the heel on the lateral aspect- does not radiate- describes as dull and achy and sharp/shooting. Feels that she overdid it this weekend. Worst: 7/10 Agg: using it, stairs, driving Eases: rest, elevation. Best: 0/10 Sleep: not anymore- not one position. No issues with her achilles prior but she did have a bump prior but did report that she was told she did have bone spurs but they just never bothered her. 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 PMHx: none Meds: Ibuprofen, Meloxicam PRN - Objective Posture: fair throughout-she can correct with cues but does not maintain. Gait: slightly antalgic- decreased stance on right LE with poor heel/toe pattern. Observation: bump on back of Achilles on right. Hey dude shoes without inserts HR/TR: able in sitting but reports discomfort. SLS: weight shift but does not SLS without UE A due to fear and instability ROM: DF: 5 degrees PF: 40 degrees Inv: 30 degrees Ever: 20 deg Strength: 4+/5 Flex: HS: severe, Gastroc: severe: Yen: severe, Palpation: tender along posterior achilleas Girth: Figure 8: 54 cm, Mall: 34 cm Mets: 40 cm - Balance/Special Test Scores Lower Extremity Functional Score: 36 - Goals Goal 1:: Patient will be I with HEP and progression Goal Time Frame: 4-6 Weeks Goal 2:: Patient will ambulate >300 feet with normalized gait pattern Goal Time Frame: 4-6 Weeks Goal 3:: Patient will SLS for 30 sec without LOB Goal Time Frame: 4-6 Weeks Goal 4:: Patient will HR/TR without UE A and no pain Goal Time Frame: 4-6 Weeks Goal 5:: Patient will report 80% improvement Goal Time Frame: 4-6 Weeks - Rehabilitation Potential Physical Therapy Diagnosis: Patient presents with hypomobility- she has decreased LE and core strength/stabilization, proprioception and muscular endurance leading to instability and increased pain with ADL's. Rehabilitation Potential: Good - Anticipated Interventions Patient/Client Instruction: Educate patient on: Benefits of Fitness Program Therapeutic Exercise to Include: Strength training, Endurance training, Balance training, Coordination, Agility training, Body mechanics, Postural training, Flexibilty training, Gait and locomotor training, Neuromotor development, Passive ROM, Active ROM, Dynamic Lumbar Stabilization, Scapular Strength/Stabilization For the Purpose of:: To improve muscle performance and motor function Functional Training to Include: Gait training TENS: Yes Cryotherapy (ice pack, ice massage): Yes Thermo therapy (hot pack): Yes Ultrasound (thermal/non thermal): Yes Thank you for the opportunity to evaluate your patient. For Medicare and Medicare HMO plans, please review the plan of care and approve it. It will need to be FAXED BACK to us at [phone] for Medicare purposes. For Medicare only, by signing this I certify the plan of care. Please let me know if there are questions or concerns regarding this plan of care. Physician Signature: Date:
--- NOTE | 2022-06-28 10:25 | HP.PTDCSUM ---
It has been my pleasure to treat AVA HEMPHILL referred by Dr. Robert Calvo DPM, with the diagnosis of Right Achilles Partial Tear for a total of 11 visit(s). Discharge Date: 06/28/22 Please see the following information for a summary of their discharge status. Subjective: Doing well. RTD June 11 R achilles Pain Intensity (Out of 10): 0 % Improvement: 75 Objective/Function: GAIT: reciprocal pattern. AROM: DF 3 Degrees ,PF 65 degrees ,INERSION 45 degrees ,eversion 10 degrees. MMT: 5/5 Goal 1:: Patient will be I with HEP and progression Goal Progress: Goal Met Goal 2:: Patient will ambulate >300 feet with normalized gait pattern Goal Progress: Goal Met Goal 3:: Patient will SLS for 30 sec without LOB Goal Progress: Goal Met Goal 4:: Patient will HR/TR without UE A and no pain Goal Progress: Goal Met Goal 5:: Patient will report 80% improvement Goal Progress: Goal Met Plan: D/C If there are questions or concerns regarding this patient's physical therapy, please feel free to call me at [phone]. Thank you for the referral of this patient. Sincerely, Domingo Mcgraw, PT, Cert MDT, OCS Balance/Gait/Functional tests - Balance/Special Test Scores Lower Extremity Functional Score: 62
== END 2022-06-28 19:00 | disposition home or self-care (01) ==
LOC: PT 10:00
PROVIDERS: PCP Internal Medicine; Referring Provider Student in an Organized Health Care Education/Training Program; Visit Provider Student in an Organized Health Care Education/Training Program
DX: S86.091D Other specified injury of right Achilles tendon, subsequent encounter (principal); S86.011D Strain of right Achilles tendon, subsequent encounter
CPT/HCPCS: 97110; 97161; 97530

== ENCOUNTER → 2023-03-31 | Outpatient (CLI) | payer OTHER, SELFPAY ==
[2023-03-31 09:44] LABS: Red Blood Cells-Urine 0 SEEN /hpf (0-5)
--- OUTSIDE RECORDS SUMMARY | 2023-03-31 10:35 | XMS RPT_ITS | CCD ---
Author Name Unknown Address [address] [place] [address] Organization [facility] Care Team Providers Care Cooler Deliverer Name Role Phone Lisa CORONEL, Yasmany Walker Unavailable [phone] PHYSICIAN, NOT RECORDED Primary Care Lorenzo LORENZANA MD, ROBINSON Díaz Attending Unavailable Allergies Allergy Classification Reported Allergen(s) Allergy Type Date of Onset Reaction(s) Facility (1 source) penicillin v Drug Allergy hives [facility] Work Phone: Medications Completed/Discontinued Medications Medication Drug Class(es) Dates Sig (Normalized) Sig (Original) cyclobenzaprine hydrochloride 10 mg oral tablet (1 source) Muscle Relaxant Start: 12-02-2016 CYCLOBENZAPRINE HCL 10 MG TABS 1 tablet Qhs x 3 dyas then 1 tablet BID CYCLOBENZAPRINE HCL [id number] Yasmany Gonzalez MD FLUoxetine 20 mg oral capsule (2 sources) Serotonin Reuptake Inhibitor Start: 07-02-2009 End: 08-06-2009 take 1 tablet by mouth once daily PROZAC 20 MG CAPS One tablet by mouth daily FLUOXETINE HCL [id number] Daniel Gonzalez MD LEVONORGESTREL IUD (1 source) Progestin, Progestin-contain ing Intrauterine Device Start: 12-02-2016 MIRENA (52 MG) IUD take as directed LEVONORGESTREL IUD [id number] Yasmany Gonzalez MD metFORMIN hydrochloride 500 mg oral tablet (2 sources) Biguanide Start: 08-06-2009 End: 12-02-2016 take 1 tablet by mouth twice daily METFORMIN HCL 500 MG TABS One tablet by mouth twice daily METFORMIN HCL [id number] Daniel Gonzalez MD pantoprazole 40 mg delayed release oral tablet (1 source) Proton Pump Inhibitor Start: 12-02-2016 PROTONIX 40 MG TBEC 1 tablet 30 minutes before breakfast PANTOPRAZOLE SODIUM [id number] Yasmany Gonzalez MD Problems Active Problems Problem Classification Problem Date Documented Da te Episodic/Chronic Anxiety disorders (2 sources) Generalized anxiety disorder; Translations: [Generalized anxiety disorder] Onset: 07-02-2009 Resolved: 12-02-2016 12-02-2016 Chronic Other nutritional; endocrine; and metabolic disorders (4 sources) Morbid obesity; Translations: [Metabolic syndrome X] Onset: 07-02-2009 Resolved: 12-02-2016 12-02-2016 Chronic Past or Other Problems Problem Classification Problem Date Documented Da te Episodic/Chronic Diabetes mellitus without complication (2 sources) Impaired fasting glycaemia; Translations: [Impaired fasting glucose] Onset: 08-06-2009 Resolved: 12-02-2016 08-06-2009 Episodic Malaise and fatigue (2 sources) Fatigue; Translations: [Other fatigue] Onset: 07-02-2009 Resolved: 12-02-2016 12-02-2016 Episodic Other non-traumatic joint disorders (4 sources) Knee pain; Translations: [Pain in wrist] Onset: 07-02-2009 Resolved: 12-02-2016 12-02-2016 Episodic Spondylosis; intervertebral disc disorders; other back problems (1 source) Low back pain; Translations: [Low back pain] Onset: 12-02-2016 12-02-2016 Episodic Results Test Name Value Interpretation Reference Range Facil ity Vital Signs Date Time Vital Sign Value Performing Clinician Facility 12-02-2016 09:54-0400 BMI (Body Mass Index) 35.73 kg/m2 Yasmany Gonzalez MD [facility] Work Phone: 12-02-2016 09:54-0400 Body Temperature 98.5 [degF] Yasmany Gonzalez MD [facility] Work Phone: 12-02-2016 09:54-0400 BP Diastolic 90 mm[Hg] Yasmany Gonzalez MD [facility] Work Phone: 12-02-2016 09:54-0400 BP Systolic 130 mm[Hg] Yasmany Gonzalez MD [facility] Work Phone: 12-02-2016 09:54-0400 Height 175.26 cm Yasmany Gonzalez MD [facility] Work Phone: 12-02-2016 09:54-0400 Pulse (Heart Rate) 96 /min Yasmany Gonzalez MD [facility] Work Phone: 12-02-2016 09:54-0400 Respiratory Rate 18 /min Yasmany Gonzalez MD [facility] Work Phone: 12-02-2016 09:54-0400 Weight 109.77 kg Yasmany Gonzalez MD [facility] Work Phone: Encounters Encounter Date Encounter Type Care Provider Facility Start: 09-30-2022 End: 10-01-2022 Emergency department patient visit NOT RECORDED PHYSICIAN Facility:B Procedures Date Procedure Procedure Detail Performing Clinician Start: 08-06-2009 End: 08-29-2009 Follow Up Appt 3 months Daniel Goznalez MD Start: 07-02-2009 End: 07-04-2009 Assay of thyroid stimulating hormone tsh Daniel Gonzalez MD Start: 07-02-2009 End: 07-04-2009 Blood count complete automated Daniel Gonzalez MD Start: 07-02-2009 End: 07-04-2009 Comprehensive metabolic panel Daniel Gonzalez MD Start: 07-02-2009 End: 07-02-2009 Follow Up Appt 1 month Daniel Gonzalez MD Start: 07-02-2009 End: 07-04-2009 Lipid panel Daniel Gonzalez MD Start: 07-02-2009 End: 07-04-2009 Radex wrist complete minimum 3 views Daniel Gonzalez MD Start: 07-02-2009 End: 07-04-2009 Urinls dip stick/tablet reagnt non-auto micrscpy Daniel Gonzalez MD Plan of Treatment Date Care Activity Detail Author Start: 01-06-2017 End: 01-06-2017 Appointment Appointment [facility] Work Phone: Start: 12-02-2016 End: 12-02-2016 Follow Up Appt 1 month Follow Up Appt 1 month [facility] Work Phone: Start: 12-02-2016 End: 12-02-2016 Physical Therapy General Physical Therapy [facility], [address] [place] [address], [id number] [facility] Work Phone: Start: 08-06-2009 End: 08-29-2009 Follow Up Appt 3 months Follow Up Appt 3 months [facility] Work Phone: Start: 07-02-2009 End: 07-04-2009 Blood count complete automated *CBC without Diff [facility] Work Phone: Start: 07-02-2009 End: 07-04-2009 Comprehensive metabolic panel *CMP Complete Metabolic Panel [facility] Work Phone: Start: 07-02-2009 End: 07-02-2009 Follow Up Appt 1 month Follow Up Appt 1 month [facility] Work Phone: Start: 07-02-2009 End: 07-04-2009 Lipid panel *Lipid Profile [facility] Work Phone: Start: 07-02-2009 End: 07-04-2009 Radex wrist complete minimum 3 views X-Ray, Wrist [facility] Work Phone: Start: 07-02-2009 End: 07-04-2009 Thyroid stimulating hormone (TSH) *TSH [facility] Work Phone: Start: 07-02-2009 End: 07-04-2009 Urinls dip stick/tablet reagnt non-auto micrscpy *Urinalysis [facility] Work Phone: Payers Date Payer Category Payer Self-pay 1979 Unknown [id number] Clinical Note 10-03-2022 Note Date & Type Note Facility 10-03-2022 Note . MICRO - Microbiology PROCEDURE: Urine Culture [*1] SOURCE: Urine, Clean Catch BODY SITE: COLLECTED DATE/TIME: 10/01/2022 00:04 EDT RECEIVED DATE/TIME: 10/01/2022 15:08 EDT START DATE/TIME: 10/01/2022 15:08 EDT FREE TEXT SOURCE: FINAL REPORTS Final Report [] Verified Date/Time/Personnel: 10/03/2022 09:05 EDT 50,000 - 100,000 cfu/ml Multiple bacterial morphotypes present. Probable Contamination. Suggest recollection if clinically indicated. PRELIMINARY REPORTS Preliminary Report [] Verified Date/Time/Personnel: 10/02/2022 16:08 EDT Culture results pending. Performing Locations *1: This test was performed at: [address], [address] [place] [address] ([place]) Summary Purpose Family History No Family History Records Found Advance Directives No Advanced Directives Records Found Additional Source Comments INFORMATION SOURCE (unrecogn ized section and content) FOR RECORDS PERTAINING TO PATIENTS WHO ARE OR HAVE BEEN ENROLLED IN A CHEMICAL DEPENDENCY/SUBSTANCEABUSE PROGRAM, SOME INFORMATION MAY BE OMITTED. This clinical summary was aggregated from multiple sources. Caution should be exercised in using it in the provision of clinical care. This summary normalizes information from multiple sources, and as a consequence, information in this document may materially change the coding, format and clinical context of patient data. In addition, data may be omitted in some cases. CLINICAL DECISIONS SHOULD BE BASED ON THE PRIMARY CLINICAL RECORDS. [email or web address] [facility]. provides no warranty or guarantee of the accuracy or completeness of information in this document.
[2023-03-31 12:22] LABS: Color, Urine Yellow (Yellow); Glucose, Dipstick Normal (Normal); Ketone-Dipstick Negative (Negative); Leukocyte Esterase-Dipstick 25 /ul (Negative); Nitrite-Dipstick Negative (Negative); Occult Blood-Urine Negative /ul (Negative); Protein-Dipstick Negative (Negative); Specific Gravity, Urine 1.015 (1.002-1.030); Urine Bilirubin Dipstick Negative (Negative); Urine Clarity Clear (Clear); Urine Urobilinogen Normal (Normal)
[2023-03-31 12:42] LABS: Bacteria RARE /hpf (None Seen); Mucous, Urine RARE /hpf (<or=2+); Squamous Epithelial Cells - UA 5-10 SEEN /hpf (5-10); White Blood Cells 0-5 SEEN /hpf (0-5)
== END | disposition home or self-care (01) ==
LOC: LABSPEC 09:43
PROVIDERS: PCP Internal Medicine; Referring Provider Nurse Practitioner; Visit Provider Nurse Practitioner
DX: N39.0 Urinary tract infection, site not specified (principal)
CPT/HCPCS: 81001; 87086; 87088

== ENCOUNTER → 2023-05-02 | Outpatient (CLI) | payer OTHER, SELFPAY ==
[2023-05-02 14:41] LABS: Vitamin D,25 Hydroxy 10.6 ng/mL
[2023-05-02 14:50] LABS: Follicle Stimulating Hormone 44.2 mIU/mL; T4 Free Direct 0.98 ng/dL (0.76-1.46); Thyroid Stim Hormone (TSH) 2.93 uIU/mL (0.358-3.74)
[2023-05-04 04:08] LABS: Thyroid Peroxidase AB < 9 IU/mL (0-34)
== END | disposition home or self-care (01) ==
LOC: PAVLAB 14:04
PROVIDERS: PCP Internal Medicine; Referring Provider Nurse Practitioner Women's Health; Visit Provider Nurse Practitioner Women's Health
DX: N91.5 Oligomenorrhea, unspecified (principal); Z13.29 Encounter for screening for other suspected endocrine disorder
CPT/HCPCS: 36415; 82306; 82670; 83001; 84439; 84443; 86376

== ENCOUNTER → 2023-05-05 | Outpatient (CLI) | payer OTHER, SELFPAY ==
--- NOTE | 2023-05-05 07:59 | BI_ITS ---
MAMMOGRAPHY - BILATERAL SCREENING REASON FOR EXAM: Female, 43 years old. Routine annual screening examination. PERTINENT HISTORY: Non-contributory. Occasional left lateral breast tenderness. TECHNIQUE: Digital bilateral breast ramos (3D mammographic acquisition) in the CC and MLO projections. 2-D mediolateral oblique (MLO) and craniocaudad (CC) views of both breasts were obtained. CAD: Full Field Digital Mammography with Computer Added Detection was performed. COMPARISON: Comparison is made with prior study November 23, 2021 and September 29, 2020. FINDINGS: Breast Composition: The breasts are almost entirely fatty. There are no dominant masses or suspicious calcifications. No other significant abnormalities are identified. There has been no significant change since the prior study. BI/SCRN MAMM (CAD)W/RAMOS BILAT IMPRESSION: Stable bilateral screening mammogram. Yearly follow-up mammogram recommended. (A) ASSESSMENT CATEGORY: BIRADS Category 1: Negative. A letter regarding these results will be sent to the patient by the facility within 30 days. Approximately 10% of breast cancers are not detected by mammography. A normal mammogram should not delay biopsy of a clinically suspicious abnormality. [id number] Electronically Signed: Guillermo White MD at 9:11 EDT ,
== END | disposition home or self-care (01) ==
LOC: OPBI 07:59
PROVIDERS: PCP Internal Medicine; Referring Provider Nurse Practitioner Women's Health; Visit Provider Nurse Practitioner Women's Health
DX: Z12.31 Encounter for screening mammogram for malignant neoplasm of breast (principal)
CPT/HCPCS: 77063; 77067

== ENCOUNTER → 2023-05-13 | Outpatient (CLI) | payer OTHER, SELFPAY | END | disposition home or self-care (01) | LOC: LABSPEC 11:03 | PROVIDERS: PCP Internal Medicine; Referring Provider Nurse Practitioner; Visit Provider Nurse Practitioner | DX: N61.1 Abscess of the breast and nipple (principal) | CPT/HCPCS: 87070; 87077; 87186; 87205 ==

== ENCOUNTER → 2024-03-22 | Outpatient (CLI) | payer BC, SELFPAY ==
--- NOTE | 2024-03-22 09:01 | US_ITS ---
PROCEDURE: BREAST LIMITED UNILATERAL REASON FOR EXAM: Resolving right breast hematoma. TECHNIQUE: Targeted right breast ultrasound. COMPARISON: Comparison is made with prior mammogram done earlier in the day. FINDINGS: RIGHT: Right breast ultrasound was targeted to the upper-outer quadrant.. The breast tissue appears sonographically normal. No cyst, solid mass, or suspicious shadowing. US/Breast Limited Unilateral IMPRESSION: BI-RADS 1: NEGATIVE. RECOMMEND ANNUAL MAMMOGRAPHIC SCREENING. Follow-up code: Routine Follow-up Reading Location: [id number]
--- NOTE | 2024-03-22 09:01 | BI_ITS ---
PROCEDURE: DIAG MAMM W/CAD, BILAT REASON FOR EXAM: F, Age 44 y/o, resolving right breast hematoma. TECHNIQUE: Bilateral screening digital breast tomosynthesis with 2D and 3D images. Computer aided detection. COMPARISON: Prior exam(s) dating back to May 05, 2023.. FINDINGS: The breasts are almost entirely fatty. Stable examination. No suspicious masses, areas of developing architectural distortion, or suspicious calcifications. With the patient's history of pain at the site of the resolving hematoma, targeted correlation of the right breast recommended. BI/DIAG MAMM W/CAD, BILAT IMPRESSION: BI-RADS 0: INCOMPLETE - NEED ADDITIONAL IMAGING EVALUATION. Follow-up code: Ultrasound correlation. The patient will be notified of the results by letter. Reading Location: [place] [id number]
== END | disposition home or self-care (01) ==
PROVIDERS: PCP Internal Medicine; Referring Provider Obstetrics & Gynecology; Visit Provider Obstetrics & Gynecology
DX: N61.1 Abscess of the breast and nipple (principal)
CPT/HCPCS: 76642; 77062; 77066; G0279

== ENCOUNTER → 2024-04-27 | Outpatient (CLI) | payer BC, SELFPAY ==
--- NOTE | 2024-04-27 17:25 | RAD_ITS ---
PROCEDURE: CALCANEUS MIN 2 VIEWS 04/27/2024 REASON FOR EXAM: PAIN TECHNIQUE: Two views of the right calcaneus (os calcis). COMPARISON: Radiograph of the right foot dated 02/21/2022. FINDINGS: Normal bone mineralization. No evidence of fracture. No focal osseous lesion. Subtalar joint is unremarkable. Alignment is preserved. Calcification of the Achilles tendon. No radiopaque foreign body identified. RAD/Calcaneus min 2 Views IMPRESSION: No acute fracture. No bone spurs are demonstrated. Calcifications of the Achi lles tendon. Reading Location: [facility]
== END | disposition home or self-care (01) ==
LOC: RAD 17:13
PROVIDERS: PCP Internal Medicine; Referring Provider Physician Assistant; Visit Provider Physician Assistant
DX: M21.6X9 Other acquired deformities of unspecified foot (principal)
CPT/HCPCS: 73650